=== PATIENT | female | born 1980 | race Caucasian/White ===

== ENCOUNTER 2018-04-09 14:09 | Outpatient (CLI) | payer OTHER | END 2018-04-09 14:10 | disposition home or self-care (01) | LOC: ULT 14:09 | PROVIDERS: ATTEND Family Medicine | DX: R00.2 Palpitations (principal); I07.1 Rheumatic tricuspid insufficiency; I51.7 Cardiomegaly | CPT/HCPCS: 93306 ==

== ENCOUNTER 2018-07-28 20:33 | Emergency (ER) | payer OTHER, SELFPAY ==
--- NOTE | 2018-07-28 21:25 | RAD ---
3 views left wrist: 07/28/2018 COMPARISON: None HISTORY: Fall, trauma, pain FINDINGS: No fracture or dislocation. No radiopaque foreign body or subcutaneous gas. No widening of the scapholunate interval. Follow-up in 7-10 days with dedicated scaphoid views recommended if symptoms persist. IMPRESSION: No acute findings.
[2018-07-28] MEDS ORDERED: Ondansetron ODT 4 MG TAB ONE (21:26)
[2018-07-28] MEDS ORDERED: Adacel (T-DAP) 0.5 ML SYRINGE ONE (21:26)
--- NOTE | 2018-07-28 21:33 | CT ---
Head CT without contrast 07/28/2018: COMPARISON: none HISTORY: Fall, trauma, pain TECHNIQUE: Axial CT imaging at 5 mm intervals from vertex through skull base without contrast FINDINGS: The imaged paranasal sinuses and mastoid air cells are well aerated. No displaced calvarial fracture is seen. There is a posterior area of focal scalp swelling on the right on image 17 consistent with recent trauma. No associated intracranial hemorrhage. No midline shift, mass effect, or ventricular enlargement. IMPRESSION: Focal area of posterior right-sided scalp swelling with no associated fracture or intracr anial hemorrhage.
--- NOTE | 2018-07-28 21:38 | CT ---
CT cervical spine without contrast: 07/28/2018 COMPARISON: None available HISTORY: trauma, pain, injury TECHNIQUE: Axial CT imaging at 2.5 mm intervals through the cervical spine without contrast. Coronal and sagittal reformatted imaging obtained. FINDINGS: C1 ring is intact. Imaged lung apices unremarkable. No evidence for fracture or dislocation. No prevertebral soft tissue swelling. No anterolisthesis or retrolisthesis. Craniocervical junction, atlantoaxial interspace, dens, and cervicothoracic junction appear unremarkable. IMPRESSION: No acute findings.
[2018-07-28] MEDS ORDERED: Acetaminophen 500 MG TAB ONE (21:48)
[2018-07-28] MEDS ORDERED: Bacitracin Zinc 1 Packet ONE (22:25)
== END 2018-07-28 22:18 | disposition home or self-care (01) ==
LOC: ERS 20:33
DX: S01.01XA Laceration without foreign body of scalp, initial encounter (principal); E03.9 Hypothyroidism, unspecified; Z85.71 Personal history of Hodgkin lymphoma; Z79.899 Other long term (current) drug therapy; Z23 Encounter for immunization; W01.198A Fall on same level from slipping, tripping and stumbling with subsequent striking against other object, initial encounter; Y93.02 Activity, running
CPT/HCPCS: 12001; 70450; 72125; 90471; 90715; Q0162

== ENCOUNTER 2023-05-14 08:31 | Outpatient (CLI) | payer OTHER | END 2023-05-14 08:32 | disposition home or self-care (01) | LOC: BICMAMMO 08:31 | PROVIDERS: ATTEND Student in an Organized Health Care Education/Training Program | DX: N63.11 Unspecified lump in the right breast, upper outer quadrant (principal); N63.22 Unspecified lump in the left breast, upper inner quadrant | CPT/HCPCS: 77066; G0279 ==

== ENCOUNTER → 2023-06-04 | Day surgery (SDC) | payer OTHER | LOC: BICULT 12:40 | PROVIDERS: ATTEND Student in an Organized Health Care Education/Training Program | PROC: 0H9V3ZX Drainage of Bilateral Breast, Percutaneous Approach, Diagnostic (ICD-10-PCS; principal; 2023-06-04) | DX: N60.21 Fibroadenosis of right breast (principal); N60.22 Fibroadenosis of left breast; N60.91 Unspecified benign mammary dysplasia of right breast | CPT/HCPCS: 19083; 19084; 88305 ==

== ENCOUNTER 2023-11-02 09:09 | Emergency (ER) | payer OTHER, SELFPAY ==
[2023-11-02 10:32] LABS: #Basophils 0.04 10x3/uL (0.0-0.2); %Eosinophils 1.5 % (0.0-10.0); %Lymphocytes 39.7 % (21.0-51.0); %Monocytes 7.1 % (0.0-10.0); %Neutrophils 50.4 % (42.0-75.0); Hematocrit 35.7 % (36.0-47.0); Hemoglobin 11.5 g/dL (12.0-16.0); Mean Corpuscular HGB CONC 32.2 g/dL (32.0-36.0); Mean Corpuscular Hemoglobin 28.8 pg (27.0-31.0); Mean Corpuscular Volume 89.5 fL (78.0-98.0); Platelet Count 270 10x3/uL (130-400); RBC Distribution Width 13.6 % (11.5-14.5); Red Blood Cell (RBC) Count 3.99 mill/uL (4.20-5.40)
[2023-11-02 10:45] LABS: Bacteria/HPF None Seen HPF (None Seen); Bilirubin Negative (Negative); Blood, Urine Negative (Negative); CAUTI Indications for Culture Pelvic or flank pain; Clarity Clear (Clear); Glucose, Urine (Dipstick) Normal (Negative); Ketone, Urine Negative (Negative); Leukocyte Negative Leu/uL (Negative); Nitrite Negative (Negative); Protein, Urine (Dipstick) Negative (Neg-Trace); RBC/HPF 0-3 HPF (0-3); Specific Gravity, Urine 1.007 (1.002-1.036); Squamous Epithelial 0-3 HPF (0-3); Urobilinogen Normal mg/dL (Less than 2); WBC/HPF 0-3 HPF (0-3)
[2023-11-02 10:47] LABS: ALT (SGPT) 15 U/L (8-55); AST (SGOT) 18 U/L (5-34); Albumin 3.8 g/dL (3.5-5.0); Alkaline Phosphatase 40 U/L (40-110); Anion Gap 12 mmol/L (10-20); BUN (Urea Nitrogen) 17 mg/dL (7.0-18.7); Bilirubin, Total 0.3 mg/dL (0.2-1.2); CRP,High Sensitivity (Inhouse) 0.21 mg/dL (< or = 0.5); Calc. Creatinine Clearance 0 mL/min (70-130); Calcium 9.4 mg/dL (7.8-10.44); Carbon Dioxide 24 mmol/L (22-29); Chloride 108 mmol/L (98-107); Estimated GFR 84; Globulin 3.9 g/dL (2.4-3.5); Glucose 89 mg/dL (70-105); Potassium 3.8 mmol/L (3.5-5.1); Protein, Total 7.7 g/dL (6.0-8.3); Sodium 140 mmol/L (136-145)
[2023-11-02 10:48] LABS: BHCG - Serum Negative (NEGATIVE); Pregs Control Background? CLEAR/WHITE (CLR/WHITE); Pregs Control Bar Appear? YES (CONTROL BAR)
[2023-11-02 10:50] LABS: Urine Culture Reflex No No
[2023-11-02 10:52] LABS: Troponin I Less than 0.010 ng/mL (< 0.028)
[2023-11-02 11:06] LABS: Influenza A by NAA Not Detected (NotDetected); Influenza B by NAA Not Detected (NotDetected); SARS-CoV-2 NAA Rapid Test Not Detected (NotDetected)
[2023-11-02] MEDS ORDERED: Aspirin Chewable 81 MG TAB ONE (11:43)
[2023-11-02] MEDS ORDERED: Nitroglycerin 0.4 MG TAB 1 EACH ONE (11:43)
[2023-11-02 12:44] LABS: Troponin I Less than 0.010 ng/mL (< 0.028)
== END 2023-11-02 13:57 | disposition home or self-care (01) ==
LOC: EEVIPCON 09:09 → ERS 09:09
DX: R07.89 Other chest pain (principal); E03.9 Hypothyroidism, unspecified; Z79.899 Other long term (current) drug therapy
CPT/HCPCS: 36415; 71045; 80053; 81001; 83880; 84484; 84703; 85025; 85379; 86141; 93005